=== PATIENT | female | born 1985 | race African-American/Black ===

== ENCOUNTER 2020-10-16 18:37 | Observation (INO) | payer OTHER ==
[2020-10-16 19:06] LABS: BASOPHILS # (AUTO) 0.1 (0.0-0.1); BASOPHILS % 0.8 % (0.0-1.0); EOSINOPHILS # (AUTO) 0.3 (0.0-0.4); EOSINOPHILS % 3.4 % (0.0-6.0); HEMATOCRIT 35.5 % (34.2-44.1); LYMPHOCYTES # (AUTO) 3.2 (1.0-3.2); LYMPHOCYTES % 42.4 % (18.0-39.1); MEAN CORPUSCULAR HEMOGLOBIN 31.7 pg (28-32); MEAN CORPUSCULAR HGB CONC 33.8 g/dL (31-35); MEAN CORPUSCULAR VOLUME 93.9 fL (81-99); MONOCYTES # (AUTO) 0.9 (0.2-0.8); MONOCYTES % 11.5 % (4.4-11.3); NEUTROPHILS # (AUTO) 3.1 (2.1-6.9); NEUTROPHILS % 41.6 % (38.7-80.0); PLATELET COUNT 185 x10e3/uL (140-360); RED BLOOD COUNT 3.78 x10e6/uL (3.6-5.1); RED CELL DISTRIBUTION WIDTH 13.3 % (11.7-14.4)
[2020-10-16 19:14] LABS: INR 0.82; PROTHROMBIN TIME 11.9 seconds (11.9-14.5)
[2020-10-16 19:15] LABS: PARTIAL THROMBOPLASTIN TIME 24.7 seconds (23.8-35.5)
[2020-10-16] MEDS ORDERED: ASPIRIN 81 MG CHEW TAB PO ONE ×2 (19:15→21:30)
[2020-10-16 19:24] LABS: ALANINE AMINOTRANSFERASE 39 IU/L (0-55); ALBUMIN 3.7 g/dL (3.5-5.0); ALBUMIN/GLOBULIN RATIO 1.1 (0.8-2.0); ALKALINE PHOSPHATASE 88 IU/L (40-150); ANION GAP 15.9 mmol/L (8-16); BLOOD UREA NITROGEN 15 mg/dL (7-26); BUN/CREATININE RATIO 16 (6-25); CALCIUM 8.5 mg/dL (8.4-10.2); CARBON DIOXIDE 21 mmol/L (22-29); CHLORIDE 108 mmol/L (98-107); CREATINE KINASE 314 IU/L (29-168); CREATININE, SERUM 0.91 mg/dL (0.57-1.11); EST GLOMERULAR FILTRATION RATE > 60 ML/MIN (60-); GLUCOSE 136 mg/dL (74-118); POTASSIUM 3.9 mmol/L (3.5-5.1); SODIUM 141 mmol/L (136-145)
[2020-10-16 21:18] LABS: CREATINE KINASE MB 1.6 ng/mL (0-5.0)
[2020-10-17] VITALS (7 sets, daily range): BP systolic 95–140; BP diastolic 57–87
[2020-10-17] MEDS ORDERED: LASIX20 MG PO (01:04)
[2020-10-17] MEDS: MORPHINE SULFATE INJ 4 MG/ML INJ 1ML IV PRN ×2 (01:15→09:53)
[2020-10-17] MEDS: ONDANSETRON HCL INJ 2MG/ML 2ML 2 MG/ML VIAL IV PRN ×2 (01:15→09:53)
[2020-10-17] MEDS ORDERED: SEROQUEL25 MG PO (01:20)
[2020-10-17] MEDS ORDERED: METOPROLOL SUCC25 MG PO (01:20)
[2020-10-17] MEDS ORDERED: ATORVASTATIN CA20 MG PO (01:21)
[2020-10-17 06:23] LABS: BASOPHILS % 0.6 % (0.0-1.0); EOSINOPHILS # (AUTO) 0.2 (0.0-0.4); EOSINOPHILS % 3.9 % (0.0-6.0); HEMATOCRIT 35.6 % (34.2-44.1); HEMOGLOBIN 11.9 g/dL (12.0-16.0); LYMPHOCYTES # (AUTO) 2.4 (1.0-3.2); LYMPHOCYTES % 49.9 % (18.0-39.1); MEAN CORPUSCULAR HEMOGLOBIN 31.7 pg (28-32); MEAN CORPUSCULAR HGB CONC 33.4 g/dL (31-35); MEAN CORPUSCULAR VOLUME 94.9 fL (81-99); MONOCYTES # (AUTO) 0.6 (0.2-0.8); MONOCYTES % 11.8 % (4.4-11.3); NEUTROPHILS # (AUTO) 1.6 (2.1-6.9); NEUTROPHILS % 33.6 % (38.7-80.0); PLATELET COUNT 166 x10e3/uL (140-360); RED BLOOD COUNT 3.75 x10e6/uL (3.6-5.1); RED CELL DISTRIBUTION WIDTH 13.5 % (11.7-14.4)
[2020-10-17 06:44] LABS: ALANINE AMINOTRANSFERASE 37 IU/L (0-55); ALBUMIN 3.3 g/dL (3.5-5.0); ALBUMIN/GLOBULIN RATIO 1.1 (0.8-2.0); ALKALINE PHOSPHATASE 69 IU/L (40-150); ANION GAP 14.1 mmol/L (8-16); BLOOD UREA NITROGEN 12 mg/dL (7-26); BUN/CREATININE RATIO 14 (6-25); CALCIUM 8.1 mg/dL (8.4-10.2); CARBON DIOXIDE 22 mmol/L (22-29); CHLORIDE 109 mmol/L (98-107); CREATININE, SERUM 0.83 mg/dL (0.57-1.11); EST GLOMERULAR FILTRATION RATE > 60 ML/MIN (60-); GLUCOSE 84 mg/dL (74-118); POTASSIUM 4.1 mmol/L (3.5-5.1); SODIUM 141 mmol/L (136-145)
[2020-10-17 07:03] LABS: CREATINE KINASE MB 1.4 ng/mL (0-5.0)
[2020-10-17] MEDS ORDERED: FUROSEMIDE INJ 10 MG/ML 4 ML VIAL IV STA (13:19)
[2020-10-17] MEDS ORDERED: LASIX40 MG PO (13:24)
[2020-10-17] MEDS ORDERED: QUETIAPINE FUMARATE 25 MG TAB PO SCH (13:30)
[2020-10-17] MEDS ORDERED: POTASSIUM CHLO20 ME1 PO (13:58)
[2020-10-17] MEDS ORDERED: POTASSIUM CHLORIDE 20 MEQ TAB CR PO ONE ×2 (14:30→21:30)
[2020-10-17 15:22] LABS: CREATINE KINASE MB 1.4 ng/mL (0-5.0)
[2020-10-17] MEDS ORDERED: METOPROLOL SUCCINATE 25 MG TAB XL PO SCH (17:00)
[2020-10-17] MEDS ORDERED: FUROSEMIDE INJ 10 MG/ML 4 ML VIAL IV ONE (19:30)
[2020-10-17] MEDS ORDERED: ULTRAM50 MG PO (19:41)
[2020-10-17] MEDS ORDERED: ATORVASTATIN 20 MG TAB PO SCH (21:00)
== END 2020-10-17 20:20 | disposition home or self-care (01) ==
LOC: ER 18:45 → ERHOLD 21:37 → MED/SURG 10-17 00:56
PROVIDERS: ADMIT Internal Medicine; ATTEND Internal Medicine
DX: I11.0 Hypertensive heart disease with heart failure (principal); I50.33 Acute on chronic diastolic (congestive) heart failure; R07.9 Chest pain, unspecified; R04.0 Epistaxis; Z88.8 Allergy status to other drugs, medicaments and biological substances; E78.5 Hyperlipidemia, unspecified; Z82.49 Family history of ischemic heart disease and other diseases of the circulatory system; Z83.3 Family history of diabetes mellitus; Z82.3 Family history of stroke; Z80.9 Family history of malignant neoplasm, unspecified; Z72.0 Tobacco use; I95.9 Hypotension, unspecified; Z91.14 Patient's other noncompliance with medication regimen; Z20.822 Contact with and (suspected) exposure to COVID-19
CPT/HCPCS: 36415 ×2; 71045; 80053 ×2; 82550 ×2; 82553 ×2; 83880; 84484 ×2; 85025 ×2; 85379; 85610; 85730; 93005; 93306; 96360; 99284; G0378 ×2; J1940; J2270; J2405; U0002

== ENCOUNTER 2020-12-02 11:47 | Emergency (ER) | payer OTHER ==
[~2020-12-02] VITALS: Ht 167.6 cm; Wt 113.9 kg
[~2020-12-02 11:47] MED LIST: ATORVASTATIN CA20 MG PO; LASIX20 MG PO; LASIX40 MG PO; METOPROLOL SUCC25 MG PO; POTASSIUM CHLO20 ME1 PO; SEROQUEL25 MG PO; ULTRAM50 MG PO
[2020-12-02] MEDS ORDERED: LIDOCAINE 4% PATCH TP STA (12:25)
[2020-12-02] MEDS ORDERED: KETOROLAC TROMETHAMINE 60 MG/2 ML VIAL IM ONE (12:30)
[2020-12-02] MEDS ORDERED: LIDOPATCH1 EACH TOP (13:12)
== END 2020-12-02 13:14 | disposition home or self-care (01) ==
LOC: ER 12:33
DX: M54.2 Cervicalgia (principal); M54.9 Dorsalgia, unspecified; V43.52XA Car driver injured in collision with other type car in traffic accident, initial encounter; Y92.488 Other paved roadways as the place of occurrence of the external cause; I10 Essential (primary) hypertension; E78.5 Hyperlipidemia, unspecified; I50.9 Heart failure, unspecified
CPT/HCPCS: 71046; 99283; J1885

== ENCOUNTER 2021-07-28 18:02 | Observation (INO) | payer OTHER ==
[~2021-07-28] VITALS: Ht 167.6 cm; Wt 113.9 kg
[~2021-07-28 18:02] MED LIST changes: +LIDOPATCH1 EACH TOP
[2021-07-28 18:32] LABS: BASOPHILS % 0.5 % (0.0-1.0); EOSINOPHILS % 0.2 % (0.0-6.0); HEMATOCRIT 40.5 % (34.2-44.1); HEMOGLOBIN 13.3 g/dL (12.0-16.0); LYMPHOCYTES # (AUTO) 1.4 (1.0-3.2); LYMPHOCYTES % 21.2 % (18.0-39.1); MEAN CORPUSCULAR HEMOGLOBIN 31.6 pg (28-32); MEAN CORPUSCULAR HGB CONC 32.8 g/dL (31-35); MEAN CORPUSCULAR VOLUME 96.2 fL (81-99); MONOCYTES # (AUTO) 0.5 (0.2-0.8); MONOCYTES % 7.8 % (4.4-11.3); NEUTROPHILS # (AUTO) 4.7 (2.1-6.9); NEUTROPHILS % 70.1 % (38.7-80.0); PLATELET COUNT 258 x10e3/uL (140-360); RED BLOOD COUNT 4.21 x10e6/uL (3.6-5.1); RED CELL DISTRIBUTION WIDTH 13.6 % (11.7-14.4)
[2021-07-28 18:49] LABS: ALBUMIN 3.8 g/dL (3.5-5.0); ANION GAP 21.9 mmol/L (8-16); CALCIUM 9.2 mg/dL (8.4-10.2); CREATININE, SERUM 1.13 mg/dL (0.57-1.11); POTASSIUM 3.9 mmol/L (3.5-5.1)
[2021-07-28] MEDS ORDERED: ASPIRIN 325 MG TAB PO ONE (19:15)
[2021-07-28] MEDS ORDERED: FUROSEMIDE INJ 10 MG/ML 4 ML VIAL IV ONE (19:45)
[2021-07-28] MEDS ORDERED: Morphine 4mg Syringe 4 MG/ML INJ IV PRN (19:45)
[2021-07-28] MEDS ORDERED: ONDANSETRON HCL INJ 2MG/ML 2ML 2 MG/ML VIAL IV PRN ×2 (19:45→20:00)
[2021-07-28] MEDS ORDERED: ASPIRIN 81 MG CHEW TAB PO ONE (20:00)
[2021-07-28] MEDS ORDERED: SODIUM CHLORIDE FLUSH 10 ML SYR INJ PRN (20:00)
[2021-07-28 21:55] VITALS: BP 96/69
[2021-07-28 22:00] VITALS: BP 96/69
[2021-07-28] MEDS ORDERED: FUROSEMIDE40 MG PO (23:15)
[2021-07-28] MEDS ORDERED: METOPROLOL SUCC50 MG PO (23:15)
[2021-07-28 23:29] VITALS: BP 117/85
[2021-07-28] MEDS: Morphine 4mg Syringe 4 MG/ML INJ IV PRN (23:31)
[2021-07-29] VITALS (8 sets, daily range): BP systolic 98–117; BP diastolic 54–85
[2021-07-29 04:08] LABS: BASOPHILS % 0.2 % (0.0-1.0); EOSINOPHILS # (AUTO) 0.1 (0.0-0.4); EOSINOPHILS % 1.2 % (0.0-6.0); HEMATOCRIT 39.5 % (34.2-44.1); HEMOGLOBIN 13.3 g/dL (12.0-16.0); LYMPHOCYTES # (AUTO) 2.3 (1.0-3.2); LYMPHOCYTES % 28.3 % (18.0-39.1); MEAN CORPUSCULAR HEMOGLOBIN 31.7 pg (28-32); MEAN CORPUSCULAR HGB CONC 33.7 g/dL (31-35); MEAN CORPUSCULAR VOLUME 94.3 fL (81-99); MONOCYTES # (AUTO) 0.7 (0.2-0.8); MONOCYTES % 8.7 % (4.4-11.3); NEUTROPHILS % 61.4 % (38.7-80.0); PLATELET COUNT 249 x10e3/uL (140-360); RED BLOOD COUNT 4.19 x10e6/uL (3.6-5.1); RED CELL DISTRIBUTION WIDTH 13.4 % (11.7-14.4)
[2021-07-29 04:25] LABS: ALBUMIN 3.8 g/dL (3.5-5.0); ANION GAP 16.5 mmol/L (8-16); CALCIUM 9.4 mg/dL (8.4-10.2); CREATININE, SERUM 1.05 mg/dL (0.57-1.11); MAGNESIUM 1.5 MG/DL (1.3-2.1); POTASSIUM 3.5 mmol/L (3.5-5.1)
[2021-07-29 04:43] LABS: CREATINE KINASE MB 2.4 ng/mL (0-5.0)
[2021-07-29 06:24] LABS: CLARITY,URINE CLEAR (CLEAR); COLOR,URINE YELLOW (YELLOW); LEUKOCYTE ESTERASE ,URINE NEGATIVE (NEGATIVE); NITRITE,URINE NEGATIVE (NEGATIVE); PROTEIN,URINE DIPSTICK NEGATIVE (NEGATIVE)
[2021-07-29 06:25] LABS: KETONES,URINE 1+ (NEGATIVE); URINE UROBILINOGEN 0.2 mg/dL (0.2 - 1)
[2021-07-29 06:39] LABS: AMORPHOUS SEDIMENT,URINE FEW (FEW); BACTERIA,URINE MODERATE /HPF; EPITHELIAL CELLS,URINE FEW /LPF; RBC,URINE 0-5 /HPF (0-5); WBC,URINE (MAN) 0-5 /HPF (0-5)
[2021-07-29] MEDS ORDERED: FUROSEMIDE INJ 10 MG/ML 4 ML VIAL IV SCH (09:00)
[2021-07-29] MEDS ORDERED: ASPIRIN 81 MG ENTERIC COATED PO SCH (09:00)
[2021-07-29 09:54] LABS: CHOL/HDL RATIO 2.1 (3.0-3.6)
[2021-07-29] MEDS ORDERED: FUROSEMIDE 40 MG TAB PO SCH (10:15)
[2021-07-29] MEDS ORDERED: QUETIAPINE FUMARATE 25 MG TAB PO SCH (10:15)
[2021-07-29] MEDS ORDERED: METOPROLOL SUCCINATE 50 MG TAB XL PO SCH (10:15)
[2021-07-29] MEDS ORDERED: POTASSIUM CHLORIDE 20 MEQ TAB CR PO SCH (10:15)
[2021-07-29 10:22] LABS: THYROID STIMULATING HORMONE 4.273 uIU/mL (0.350-4.940)
[2021-07-29 11:29] LABS: CREATINE KINASE MB 3.1 ng/mL (0-5.0)
[2021-07-29] MEDS: Morphine 4mg Syringe 4 MG/ML INJ IV PRN (16:57)
[2021-07-29] MEDS ORDERED: ENOXAPARIN SOD INJ 40 MG/0.4 ML SYR SC SCH (17:00)
[2021-07-29] MEDS ORDERED: ASPIRIN EC81 MG PO (17:11)
[2021-07-29] MEDS ORDERED: FUROSEMIDE40 MG PO (17:11)
[2021-07-29] MEDS ORDERED: SEROQUEL25 MG PO (17:11)
[2021-07-29] MEDS ORDERED: POTASSIUM CHLO20 ME1 PO (17:11)
[2021-07-29] MEDS ORDERED: ATORVASTATIN CA20 MG PO (17:11)
[2021-07-29] MEDS ORDERED: METOPROLOL SUCC50 MG PO (17:11)
[2021-07-29] MEDS ORDERED: ULTRAM50 MG PO (18:05)
[2021-07-29] MEDS ORDERED: ONDANSETRON HCL 4 MG ORAL DISINTEGRATING TAB PO PRN (18:15)
== END 2021-07-29 18:37 | disposition home or self-care (01) ==
LOC: ER 18:06 → ERHOLD 19:52 → MED/SURG 22:01
PROVIDERS: ADMIT Internal Medicine; ATTEND Internal Medicine
DX: I13.0 Hypertensive heart and chronic kidney disease with heart failure and stage 1 through stage 4 chronic kidney disease, or unspecified chronic kidney disease (principal); I50.9 Heart failure, unspecified; N18.9 Chronic kidney disease, unspecified; Z20.822 Contact with and (suspected) exposure to COVID-19; F32.A Depression, unspecified; E87.2 Acidosis; E66.01 Morbid (severe) obesity due to excess calories; Z68.41 Body mass index [BMI] 40.0-44.9, adult
CPT/HCPCS: 36415 ×2; 71045; 80053 ×2; 80061; 81001; 82550; 82553; 83690; 83735; 83880; 84443; 84484 ×2; 84702; 85025 ×2; 85379; 93005; 93306; 94799; 99284; G0378 ×2; J1650; J1940; J2270 ×2; J2405; U0002

== ENCOUNTER 2021-08-22 21:04 | Emergency (ER) | payer OTHER ==
[~2021-08-22] VITALS: Ht 167.6 cm; Wt 105.2 kg
[~2021-08-22 21:04] MED LIST changes: +ASPIRIN EC81 MG PO; +FUROSEMIDE40 MG PO; +METOPROLOL SUCC50 MG PO
[2021-08-22] MEDS ORDERED: SODIUM CHLORIDE 0.9% 1000ML 1,000 ML IV STA (21:35)
[2021-08-22] MEDS ORDERED: FAMOTIDINE 20 MG/2 ML VIAL IV ONE ×2 (21:45→22:15)
[2021-08-22] MEDS ORDERED: KETOROLAC TROMETHAMINE 30 MG/ML VIAL IV ONE (21:45)
[2021-08-22] MEDS ORDERED: ONDANSETRON HCL INJ 2MG/ML 2ML 2 MG/ML VIAL IV ONE (21:45)
[2021-08-22] MEDS ORDERED: KETOROLAC TROMETHAMINE 30 MG/ML VIAL ONE (22:14)
[2021-08-22] MEDS ORDERED: ONDANSETRON HCL INJ 2MG/ML 2ML 2 MG/ML VIAL ONE (22:14)
[2021-08-22] MEDS ORDERED: SODIUM CHLORIDE 0.9% 1000ML 1,000 ML ONE (22:15)
[2021-08-22 22:17] VITALS: BP 150/92
== END 2021-08-22 22:17 | disposition home or self-care (01) ==
LOC: FSED 21:22
DX: R10.11 Right upper quadrant pain (principal); I10 Essential (primary) hypertension; E78.5 Hyperlipidemia, unspecified; I50.9 Heart failure, unspecified; Z87.442 Personal history of urinary calculi
CPT/HCPCS: 80053; 81003; 85025; 99283; J1885; J7030; J2405